=== PATIENT | female | born 1995 | race Caucasian/White ===

== ENCOUNTER 2022-02-08 21:14 | Emergency (ER) | payer OTHER ==
[~2022-02-08] VITALS: Ht 160 cm; Wt 64.5 kg
[~2022-02-08 21:14] MED LIST: ABILIFY2 MG PO; CATAPRES 0.1MG0.1 MG PO; CIPRO 500MG TA500 MG PO; COLACE 100100 MG/CAP PO; DILAUDID 2MG TAB2 MG PO; EPIPEN 2-PAK1 MG/ML IM; MEDROL 4MG DOSPA4 MG PO; MINIPRESS 1M1 MG/CAP PO; MOTRIN 600600 MG/TAB PO; RISPERDAL 0.20.25 MG PO; SEROQUEL 2525 MG/TAB PO; TYLENOL 325MG325 MG PO; ULTRAM 50MG TAB50 MG PO; ZOLOFT 25MG25 MG PO
[2022-02-08 21:22] VITALS: BP 167/94; PULSE 109; TEMP 98.7
== END 2022-02-08 22:36 | disposition home or self-care (01) ==
LOC: COL.ER 21:14
DX: G40.909 Epilepsy, unspecified, not intractable, without status epilepticus (principal)

== ENCOUNTER 2022-02-12 15:20 | Emergency (ER) | payer OTHER ==
[~2022-02-12] VITALS: Ht 160 cm; Wt 64.1 kg
[2022-02-12 15:32] VITALS: TEMP 98
[2022-02-12 16:11] LABS: BASO % 0.7 % (0.0-2.0); EOS % 0.7 % (0.0-4.0); GRAN # 2.2 K/mm3 (1.4-6.5); GRAN % 55.6 % (42.2-75.2); HEMATOCRIT 39.3 % (37.0-47.0); LYMPH # 1.3 K/mm3 (1.2-3.4); LYMPH % 33.1 % (20.0-51.0); MEAN CELL VOLUME 90 fl (80.0-100.0); MEAN CORPUSCULAR HEMOGLOBIN 32 pg (27-31); MEAN CORPUSCULAR HGB CONC 36 g/dl (33.0-37.0); MEAN PLATELET VOLUME 9.6 fl (7.4-10.4); MONO # 0.4 K/mm3 (0.1-0.6); MONO % 9.7 % (1.7-9.3); PLATELET COUNT 304 K/mm3 (130-400); RED BLOOD COUNT 4.37 M/mm3 (4.10-5.30); REDCELL DISTRIBUTION WIDTH-CV 12.2 % (11.5-14.5)
[2022-02-12 16:36] LABS: ALANINE AMINOTRANSFERASE 22 U/L (0-55); ALBUMIN 3.8 gm/dL (3.5-5.0); ALKALINE PHOSPHATASE 55 U/L (40-150); ANION GAP 12 mmol/L (7-16); AST,SGOT 18 U/L (5-34); BILIRUBIN,TOTAL 1.1 mg/dL (0.2-1.2); BLOOD UREA NITROGEN 9 mg/dL (7-19); CALCIUM 10.3 mg/dL (8.4-10.2); CARBON DIOXIDE 22 mmol/L (22-29); CHLORIDE 105 mmol/L (98-107); CREATININE, serum 0.74 mg/dL (0.57-1.11); GLUCOSE 69 mg/dL (70-99); LIPASE 12 U/L (8-78); MAGNESIUM 2.1 mg/dL (1.6-2.6); POTASSIUM 3.6 mmol/L (3.5-4.5); SODIUM 139 mmol/L (136-145); TOTAL PROTEIN 7.3 gm/dL (6.2-8.1)
[2022-02-12 16:41] LABS: TROPONIN-I < 0.010 ng/mL (0.00-0.033)
[2022-02-12 17:23] LABS: TRICYCLIC ANTIDEPRESS URINE NEGATIVE
[2022-02-12 18:00] VITALS: BP 121/89; PULSE 108
== END 2022-02-12 18:00 | disposition home or self-care (01) ==
LOC: COL.ER 15:20
PROVIDERS: Emergency Medicine
DX: R55 Syncope and collapse (principal); R00.2 Palpitations; F17.210 Nicotine dependence, cigarettes, uncomplicated
CPT/HCPCS: J2060; J7120